=== PATIENT | female | born 2000 | race Two or more races ===

== ENCOUNTER 2020-01-20 05:53 | Inpatient (IN) | payer OTHER ==
[~2020-01-20] VITALS: Ht 157.5 cm; Wt 59.1 kg
[2020-01-24] MEDS ORDERED: HIBICLENS118 ML TOP (09:05)
[2020-01-24] MEDS ORDERED: LEVAQUIN500 MG PO (09:05)
[2020-01-24] MEDS ORDERED: MILK OF MA400 MG/5 M PO (09:06)
[2020-01-24] MEDS ORDERED: COLACE100 MG PO (09:08)
== END 2020-01-24 12:32 | disposition home or self-care (01) | DRG 578 ==
LOC: CIR.AMB 05:53 → PED 14:35 → O/R 14:35 → PED 15:26
PROVIDERS: ADMIT Surgery; ATTEND Surgery
PROC: 0HX8XZZ Transfer Buttock Skin, External Approach (ICD-10-PCS; 2020-01-20)
PROC: 0HB8XZZ Excision of Buttock Skin, External Approach (ICD-10-PCS; principal; 2020-01-20 09:00)
DX: L05.01 Pilonidal cyst with abscess (principal)